=== PATIENT | male | born 1950 | race Caucasian/White ===

== ENCOUNTER 2023-06-28 08:44 | Outpatient (CLI) | payer OTHER, SELFPAY ==
--- NOTE | 2023-06-28 09:06 | USCV_ITS ---
Edilson Hendrix Age: 72 Gender: M : 1950 Exam Date: 06/28/2023 09:13 Ordering Phys: Kirby Mason DO Technologist: Lex Hunt [place] [facility] [place] HISTORY: Diameter (cm) AP x Transverse x Length Velocity (cm/s) Waveform Prox Aorta: 1.45 x 1.41 x 101.20 Triphasic Mid Aorta: 1.41 x 1.69 x 83.50 Triphasic Distal Aorta: 1.45 x 1.62 x 77.70 Triphasic Right Iliac Prox: 0.79 x 1.13 x 92.80 Triphasic Left Iliac Prox: 0.93 x 0.76 x 91.00 Triphasic Stent Prox Landing x x Aneurysmal Sac Max x x Lt Lat Sac Dim Rt Lat Sac Dim Stent Dist Landing x x Right Iliac Stent x x Left Iliac Stent x x Right Renal Art Left Renal Art FINDINGS: Comparison: none available. No evidence of abdominal aortic or bilateral iliac aneurysm. Ectatic abdominal aorta with evidence of atherosclerotic plaque noted. CONCLUSIONS No evidence of abdominal aortic aneurysm. Dr. Laisha Young DO (Electronically Signed) Final Date: 28 June 2023 11:25 S
== END 2023-06-28 08:45 | disposition home or self-care (01) ==
LOC: RAD 08:44
PROVIDERS: Family Provider Emergency Medicine Emergency Medical Services; PCP Emergency Medicine Emergency Medical Services; Visit Provider Emergency Medicine Emergency Medical Services
DX: Z13.6 Encounter for screening for cardiovascular disorders (principal)
CPT/HCPCS: 76706

== ENCOUNTER → 2024-07-17 08:55 | Outpatient (BNVA) | payer OTHER, SELFPAY | PROVIDERS: Family Provider Emergency Medicine Emergency Medical Services; PCP Emergency Medicine Emergency Medical Services; Visit Provider Nurse Practitioner Family | DX: L21.8 Other seborrheic dermatitis (principal); L72.0 Epidermal cyst; L57.8 Other skin changes due to chronic exposure to nonionizing radiation; L82.0 Inflamed seborrheic keratosis; L29.89 Other pruritus; L57.0 Actinic keratosis | CPT/HCPCS: 17000; 17110; 99204 ==